=== PATIENT | male | born 1975 ===

== ENCOUNTER 2020-07-04 15:21 | Emergency (ER) | payer OTHER, SELFPAY ==
--- NOTE | ~2020-07-04 | CT_ITS ---
EXAMINATION: CT lumbar spine wo con DATE: 07/04/2020 15:59 INDICATION: Low back and sacral pain after fall, initial encounter TECHNIQUE: Computed tomography (CT) of the lumbar spine was performed without intravenous contrast. T he dose-length product (DLP) was 1087.51 mGy-cm. Iterative reconstruction was used. COMPARISON: 05/14/2014 FINDINGS: There are nondisplaced acute fractures of the right L3 and L4 transverse processes. No edwin tional fracture is identified. The lumbar vertebral body heights and alignment are normal. There is m ild loss of intervertebral disc space height at L4-5 and L5-S1. IMPRESSION: 1. Acute, nondisplaced right L3 and L4 transverse process fractures. Reviewed, dictated and finalized at location A. PSYCHOLOGIST
[2020-07-04 15:30] VITALS: BP 167/107; PULSE 96; RESP 20; TEMP 36.8; O2SAT 95
--- NOTE | 2020-07-04 15:32 | ED.BACK ---
HPI - Back Pain/Injury General Chief Complaint: Back Pain/Injury Stated Complaint: back pain Time Seen by Provider: 07/04/20 15:32 Source: patient Mode of arrival: ambulatory Limitations: no limitations History of Present Illness HPI Narrative: 45-year-old man with a history of low back pain comes in today complaining low back pain and pain radiating down his right leg along with some tingling. Patient states that 1 week ago he fell landing on his buttocks. He had minor pain at 1st but the pain has gotten progressively worse. Yesterday he sneezed or coughed and his pain got suddenly worse. He denies incontinence, perineal numbness, weakness in his legs. He has no history of prior back surgery however he has had cortisone injections for low back pain as recently as last winter. MD elicited complaint: back injury Pertinent past history: prior back pain and recent trauma Onset (ago): week(s) (1) Timing: constant and progressively worsening Severity: moderate Quality: sharp and aching Location: lumbar spine Radiation: buttocks, right upper leg and right leg below the knee Exacerbating factors: movement Relieving factors: other ( Position) Context: fall Associated symptoms: parasthesias Treatments prior to arrival: prescription analgesics ( muscle relaxers and meloxicam) Related Data Home Medications Medication Instructions Recorded Confirmed atorvastatin 20 mg PO DAILY 07/04/20 07/04/20 cyclobenzaprine 5 mg PO TID PRN 07/04/20 07/04/20 diclofenac sodium 1 ea TOPICAL DAILY PRN 07/04/20 07/04/20 pramipexole 0.125 mg PO HS 07/04/20 07/04/20 sertraline 100 mg PO DAILY 07/04/20 07/04/20 Allergies Allergy/AdvReac Type Severity Reaction Status Date / Time iohexol Allergy Hives Verified 07/04/20 15:33 [From contrast - CT, X-RAY] Review of Systems ENT: Denies nasal congestion and Denies sore throat Cardiovascular: Cardiovascular: Denies chest pain and Denies radiating jaw, neck or arm pain Respiratory: Respiratory: Denies cough and Denies dyspnea Gastrointestinal: Gastrointestinal: Denies abdominal pain, Denies nausea and Denies vomiting Genitourinary: Genitourinary: Denies urinary incontinence Musculoskeletal: Musculoskeletal: Reports as per HPI, Denies arthralgias and Denies joint swelling Integumentary/Breasts: Skin/Breast: Denies pruritus, Denies erythema and Denies rash Neurologic: Denies vertigo, Denies dizziness and Denies syncope [facility] Past Medical History Medical History (Updated 07/04/20 @ 17:00 by Arben Olmos MD) Hyperlipidemia Low back pain Restless leg syndrome Social History Social History (Updated 07/04/20 @ 16:09 by Arben Olmos MD) Smoking status: Never smoker Substance use: never Living arrangements: with family Exam Const: General: healthy appearing and alert Orientation/consciousness: patient oriented x3 Limitations: no limitations Other: moderate acute distress. Eyes: Conjunctivae: conjunctivae normal Pupils: Equal, round and reactive pupils present EOM: EOMs intact bilaterally Resp: Effort & Inspection: normal respiratory effort and not labored Auscultation: clear to auscultation bilaterally, no rales, no rhonchi and no wheezes Cardio: Rate: regular rate Rhythm: regular rhythm Heart sounds: no murmurs Back/Spine/Pelvis: Other: Complains of tenderness to palpation over the upper lumbar spine midline. He has no swelling, erythema, or abnormal contour. Skin: General skin exam: normal color, no jaundice and no pallor Rashes: no rashes Neuro: General: patient oriented x3, moves all extremities, no focal motor deficits and CN's II-XI intact bilaterally Speech: normal speech Gait exam (Neuro): Normal gait present Extrem: General: normal to inspection and no clubbing, cyanosis or edema Psych: Appearance: grossly normal and well kempt Mental Status: mental status grossly normal Affect: normal affect Attitude: cooperative Thought content: Yes N
[2020-07-04] MEDS: HYDROcodone/acetaminophen (*CRX) 5-325 MG TABLET 1 TAB PO (15:44)
[2020-07-04 17:20] VITALS: BP 176/105
== END 2020-07-04 17:22 | disposition home or self-care (01) ==
PROVIDERS: Emergency Provider Emergency Medicine; PCP Family Medicine
DX: S32.009A Unspecified fracture of unspecified lumbar vertebra, initial encounter for closed fracture (principal); W19.XXXA Unspecified fall, initial encounter
CPT/HCPCS: 72131; 99283; 99284; A9270